=== PATIENT | female | born 1995 | race African-American/Black ===

== ENCOUNTER 2020-08-14 03:39 | Emergency (ER) | payer MEDICAID ==
[~2020-08-14] VITALS: Ht 172.7 cm; Wt 84.8 kg
[2020-08-14 04:49] VITALS: BP 113/87
== END 2020-08-14 06:06 | disposition left against medical advice (07) ==
LOC: ER 03:39
DX: R06.02 Shortness of breath (principal); Z53.21 Procedure and treatment not carried out due to patient leaving prior to being seen by health care provider
CPT/HCPCS: 93005

== ENCOUNTER 2021-01-29 01:10 | Emergency (ER) | payer MEDICAID, OTHER ==
[~2021-01-29] VITALS: Ht 172.7 cm; Wt 81.6 kg
[2021-01-29 01:13] VITALS: BP 117/87
== END 2021-01-29 05:41 | disposition left against medical advice (07) ==
LOC: ER 01:10
DX: M79.10 Myalgia, unspecified site (principal); R51.9 Headache, unspecified; R11.0 Nausea; Z53.21 Procedure and treatment not carried out due to patient leaving prior to being seen by health care provider